=== PATIENT | female | born 1970 | race American Indian/Alaskan Native ===

== ENCOUNTER 2018-05-05 18:19 | Emergency (ER) | payer OTHER ==
[2018-05-05 18:55] VITALS: BP 148/101
[2018-05-05] MEDS ORDERED: TORADOL IM ONE (21:17)
--- NOTE | 2018-05-05 21:49 | Emergency Department Report ---
ED Back Pain/Injury HPI - General Chief Complaint: Back Pain/Injury Stated Complaint: LOWER BACK PAIN Time Seen by Provider: 05/05/18 20:38 Source: patient Limitations: No Limitations - History of Present Illness Initial Comments: This is a 47-year-old female nontoxic, well nourished in appearance, no acute signs of distress presents to the ED with c/o of acute on chronic lower back pain. 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 Patient states has history of sciatica nerve pain which is similar symptoms as today. Patient states that pain radiates through to his right lower extremity. Patient denies any trauma. Denies any bladder or bowel instability. Patient denies any urinary symptoms. Denies any fever, chills, nausea, vomiting, headache, stiff neck, chest pain or shortness of breath. Patient denies any numbness or tingling. Patient stated allergies to PCN. Denies any PMH. MD Complaint: back pain -: days(s) (2) Similar Symptoms Previously: Yes Place: work Radiation: right leg Severity: mild Severity scale (0 -10): 8 Quality: aching Consistency: intermittent Improves With: immobilization, supine, sitting upright Worsens With: movement, walking Context: while lifting, turning/twisting Associated Symptoms: denies other symptoms. denies: confusion, weakness, chest pain, numbness, difficulty walking, cough, difficulty urinating, diaphoresis, incontinence, fever/chills, constipation, headaches, abdominal pain, loss of appetite, malaise, nausea/vomiting, rash, seizure, shortness of breath, syncope - Related Data Previous Rx's Medication Instructions Recorded Last Taken Type Butalb/Acetamin/Caff 50-325-40 1 each PO Q6H PRN #12 tablet 06/15/14 Unknown Rx [Fioricet] Doxycycline [Vibramycin CAP] 100 mg PO BID #12 capsule 06/15/14 Unknown Rx Fluticasone [Flonase] 1 spray NS QDAY #1 bottle 06/15/14 Unknown Rx Famotidine [Pepcid] 20 mg PO BID #10 tablet 10/30/14 Unknown Rx Ondansetron [Zofran Odt] 8 mg PO Q6H #10 tab.rapdis 10/30/14 Unknown Rx Cyclobenzaprine [Flexeril] 10 mg PO QHS PRN #10 tablet 05/05/18 Unknown Rx Ibuprofen [Motrin] 600 mg PO Q8H PRN #30 tablet 05/05/18 Unknown Rx Allergies Allergy/AdvReac Type Severity Reaction Status Date / Time Penicillins Allergy Hives Verified 06/15/14 05:48 ED Review of Systems ROS: Stated complaint: LOWER BACK PAIN Other details as noted in HPI Constitutional: denies: chills, fever Eyes: denies: eye pain, eye discharge, vision change ENT: denies: ear pain, throat pain Respiratory: denies: cough, shortness of breath, wheezing Cardiovascular: denies: chest pain, palpitations Endocrine: no symptoms reported Gastrointestinal: denies: abdominal pain, nausea, vomiting, diarrhea Genitourinary: denies: urgency, dysuria, discharge Musculoskeletal: back pain. denies: joint swelling, arthralgia Skin: denies: rash, lesions Neurological: denies: headache, weakness, paresthesias Psychiatric: denies: anxiety, depression Hematological/Lymphatic: denies: easy bleeding, easy bruising ED Past Medical Hx - Past Medical History Hx Hypertension: Yes Hx CVA: No Hx Heart Attack/AMI: No Hx Congestive Heart Failure: No Hx Diabetes: No Hx Deep Vein Thrombosis: No Hx Pulmonary Embolism: No Hx GERD: No Hx Liver Disease: No Hx Renal Disease: No Hx Sickle Cell Disease: No Hx Arthritis: No Hx Headaches / Migraines: No Hx Seizures: No Hx Kidney Stones: No Hx Psychiatric Treatment: No Hx Asthma: No Hx COPD: No Hx Tuberculosis: No Hx Dementia: No Hx HIV: No - Surgical History Hx Coronary Stent: No Hx Open Heart Surgery: No Hx Pacemaker: No Hx Internal Defibrillator: No Hx Cholecystectomy: No Hx Appendectomy: No Hx Breast Surgery: Yes Additional Surgical History: breast reduction,hysterectomy - Social History Smoking Status: Never Smoker Substance Use Type: None - Medications Home Medications: Home Medications Medication Instructions Recorded Confirmed Last Taken Type Butalb/Acetamin/Caff 50-325-40 1 each PO Q6H PRN #12 tablet 06/15/14 Unknown Rx [Fioricet] Doxycycline [Vibramycin CAP] 100 mg PO BID #12 capsule 06/15/14 Unknown Rx Fluticasone [Flonase] 1 spray NS QDAY #1 bottle 06/15/14 Unknown Rx Famotidine [Pepcid] 20 mg PO BID #10 tablet 01/31/15 Unknown Rx Ondansetron [Zofran Odt] 8 mg PO Q6H #10 tab.rapdis 10/30/14 Unknown Rx Cyclobenzaprine [Flexeril] 10 mg PO QHS PRN #10 tablet 05/05/18 Unknown Rx Ibuprofen [Motrin] 600 mg PO Q8H PRN #30 tablet 05/05/18 Unknown Rx ED Physical Exam - General Limitations: No Limitations General appearance: alert, in no apparent distress - Head Head exam: Present: atraumatic, normocephalic - Eye Eye exam: Present: normal appearance, PERRL, EOMI Pupils: Present: normal accommodation - ENT ENT exam: Present: normal exam, mucous membranes moist - Neck Neck exam: Present: normal inspection, full ROM. Absent: tenderness, meningismus, lymphadenopathy - Respiratory Respiratory exam: Present: normal lung sounds bilaterally. Absent: respiratory distress, wheezes, rales, rhonchi, stridor, chest wall tenderness, accessory muscle use, decreased breath sounds, prolonged expiratory - Cardiovascular Cardiovascular Exam: Present: regular rate, normal rhythm, normal heart sounds. Absent: bradycardia, tachycardia, irregular rhythm, systolic murmur, diastolic murmur, rubs, gallop - GI/Abdominal GI/Abdominal exam: Present: soft, normal bowel sounds. Absent: distended, tenderness, guarding, rebound, rigid, diminished bowel sounds - Rectal Rectal exam: Present: deferred - Extremities Exam Extremities exam: Present: normal inspection, full ROM, normal capillary refill. Absent: tenderness - Back Exam Back exam: Present: normal inspection, full ROM, paraspinal tenderness (lumbar paraspinal). Absent: tenderness, CVA tenderness (R), CVA tenderness (L), muscle spasm, vertebral tenderness, rash noted - Neurological Exam Neurological exam: Present: alert, oriented X3, normal gait - Psychiatric Psychiatric exam: Present: normal affect, normal mood - Skin Skin exam: Present: warm, dry, intact, normal color. Absent: rash ED Course Vital Signs 05/05/18 18:53 Temperature 98.5 F Pulse Rate 70 Respiratory 18 Rate Blood Pressure 148/101 O2 Sat by Pulse 99 Oximetry - Reevaluation(s) Reevaluation #1: 05/05/18 21:43 Patient is speaking in full sentences with no signs of distress noted. ED Medical Decision Making - Medical Decision Making This is a 47-year-old female that presents with low back strain. Patient is stable was examined by me. There is no spinal tenderness. There is no cauda equina syndrome during examination. No bladder or bowel instability. Patient received Toradol 60 mg IM in the ED which preceded his symptoms has resolved and subsided. Patient is discharged with muscle relaxant and Motrin. Patient was instructed not to operate any machinery while taking muscle relaxant as they cause her drowsiness. Patient was referred to Follow-up with a primary care doctor in 3-5 days or if symptoms worsen and continue return to emergency room as soon as possible. At time of discharge, the patient does not seem toxic or ill in appearance. No acute signs of distress noted. Patient agrees to discharge treatment plan of care. No further questions noted by the patient. This chart is dictated with using [employer] Critical care attestation.: If time is entered above; I have spent that time in minutes in the direct care of this critically ill patient, excluding procedure time. ED Disposition Clinical Impression: Low back strain Qualifiers: Encounter type: initial encounter Qualified Code(s): S39.012A - Strain of muscle, fascia and tendon of lower back, initial encounter Disposition: - TO HOME OR SELFCARE Is pt being admited?: No Does the pt Need Aspirin: No Condition: Stable Instructions: Low Back Strain (ED), Cyclobenzaprine (By mouth) Additional Instructions: Follow-up with your primary care doctor in 3-5 days or if symptoms worsen such as bladder or bowel stability, chest pain, short of breath, numbness or tingling sensation in extremities, headache, dizziness, visual changes, nausea vomiting, or abdominal pain, return back to emergency room as was possible. Take ibuprofen and Flexeril as prescribed. Do not operate heavy machinery while taking Flexeril due to sedation Prescriptions: Cyclobenzaprine [Flexeril] 10 mg PO QHS PRN #10 tablet PRN Reason: Muscle Spasm Ibuprofen [Motrin] 600 mg PO Q8H PRN #30 tablet PRN Reason: Pain Referrals: PRIMARY CAREMD [Primary Care Provider] - 3-5 Days SETH SAHNI MD [Staff Physician] - 3-5 Days [facility] [Outside] - 3-5 Days [facility] [Outside] - 3-5 Days Forms: Work/School Release Form(ED)
== END 2018-05-05 22:20 | disposition home or self-care (01) ==
LOC: ED 18:19
DX: S39.012A Strain of muscle, fascia and tendon of lower back, initial encounter (principal); I10 Essential (primary) hypertension; Z88.0 Allergy status to penicillin; Z90.710 Acquired absence of both cervix and uterus; X50.0XXA Overexertion from strenuous movement or load, initial encounter; Y93.89 Activity, other specified; Y92.89 Other specified places as the place of occurrence of the external cause; Y99.8 Other external cause status
CPT/HCPCS: 96372; 99282; J1885

== ENCOUNTER 2019-11-22 17:39 | Emergency (ER) | payer OTHER ==
[2019-11-22 18:22] VITALS: BP 154/99
--- NOTE | 2019-11-22 18:22 | Event Note ---
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
--- NOTE | 2019-11-22 18:25 | Emergency Department Report ---
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 may use ice pack, heating pad, rest, epsom salt bath. if symptoms do not improve in the next couple of days follow up with a primary care doctor. return to the emergency room immediately for any new or worsening symptoms including but not limited to fever, chills, nausea/vomiting/diarrhea, blood or pus in the stool, burning on urination, urinary frequency/urgency, severe abdominal pain, or if unable to johnson ve a bowel movement, etc. Could be related to muscle strain, bursitis, arthritis Patient has had no acute traumatic injury Patient has no clinical signs or symptoms of DVT Medical screening examination performed and there is no threat to life or limb at this time Patient referred to an orthopedic, also discussed to see her PCP Discussed strict return precautions with the patient - Exam Vital Signs: Vital Signs 11/22/19 18:17 Temperature 98.1 F Pulse Rate 79 Respiratory 18 Rate Blood Pressure 154/99 O2 Sat by Pulse 100 Oximetry MSE screening note: Focused history and physical exam performed. ED Disposition for MSE Clinical Impression: Right hip pain Disposition: Z-[id number] MED SCREENING EXAM-LEFT Condition: Stable Instructions: Muscle Strain (ED) Additional Instructions: may take tylenol or ibuprofen as needed for pain. may use ice pack, heating pad, rest, epsom salt bath. if symptoms do not improve in the next couple of days follow up with a primary care doctor. return to the emergency room immediately for any new or worsening symptoms including but not limited to fever, chills, nausea/vomiting/diarrhea, blood or pus in the stool, burning on urination, urinary frequency/urgency, severe abdominal pain, or if unable to have a bowel movement, etc. Referrals: [facility] [Provider Group] - 3-5 Days HARSH SEN MD [Staff Physician] - 3-5 Days Forms: Work/School Release Form(ED) Time of Disposition: 18:23 Print Language: KOREAN
== END 2019-11-22 19:15 | disposition left against medical advice (07) ==
LOC: ED 17:39
DX: M25.551 Pain in right hip (principal)
CPT/HCPCS: 99282

== ENCOUNTER 2021-01-21 16:03 | Emergency (ER) | payer SELFPAY | END 2021-01-21 19:00 | disposition left against medical advice (07) | LOC: ED 16:03 | DX: R51.9 Headache, unspecified (principal); Z53.21 Procedure and treatment not carried out due to patient leaving prior to being seen by health care provider ==

== ENCOUNTER 2021-09-24 12:09 | Emergency (ER) | payer SELFPAY ==
[2021-09-24 15:53] VITALS: BP 172/97
--- NOTE | 2021-09-24 16:21 | Emergency Department Report ---
- General Chief Complaint: Upper Respiratory Infection Stated Complaint: FACIAL PAIN/THROAT PAIN Time Seen by Provider: 09/24/21 15:59 Source: patient Mode of arrival: Ambulatory Limitations: No Limitations - History of Present Illness Initial Comments: Patient is a 50-year-old female presents emergency room with complaints of nasal congestion that began 2 days ago. she has associated sinus pressure, dry cough, sore throat. She denies any fever, vomiting, diarrhea, shortness of breath, chest pain. She reports that her niece tested positive for COVID-19. Patient states that she has been fully vaccinated for COVID-19. Past medical history of hypertension. Allergy to penicillin. - Related Data Previous Rx's Medication Instructions Recorded Last Taken Type Butalb/Acetamin/Caff 50-325-40 1 each PO Q6H PRN #12 tablet 06/15/14 Unknown Rx [Fioricet] DOXYCYCLINE Hyclate [Vibramycin 100 mg PO BID #12 capsule 06/15/14 Unknown Rx CAP] Fluticasone [Flonase] 1 spray NS QDAY #1 bottle 06/15/14 Unknown Rx Famotidine [Pepcid] 20 mg PO BID #10 tablet 10/30/14 Unknown Rx Ondansetron [Zofran Odt] 8 mg PO Q6H #10 tab.rapdis 10/30/14 Unknown Rx Cyclobenzaprine [Flexeril] 10 mg PO QHS PRN #10 tablet 05/05/18 Unknown Rx Ibuprofen [Motrin] 600 mg PO Q8H PRN #30 tablet 05/05/18 Unknown Rx Benzonatate [Tessalon Perles] 100 mg PO Q8HR PRN #12 capsule 09/24/21 Unknown Rx Fluticasone [Flonase] 1 spray NS QDAY #1 bottle 09/24/21 Unknown Rx Loratadine 10 mg PO DAILY #14 tablet 09/24/21 Unknown Rx guaiFENesin ER [Mucinex ER] 600 mg PO Q12H #14 tablet.er 09/24/21 Unknown Rx Allergies Allergy/AdvReac Type Severity Reaction Status Date / Time Penicillins Allergy Hives Verified 06/15/14 05:48 ED Review of Systems ROS: Stated complaint: FACIAL PAIN/THROAT PAIN Other details as noted in HPI Comment: All other systems reviewed and negative ED Past Medical Hx - Past Medical History Previous Medical History?: Yes Hx Hypertension: Yes Hx CVA: No Hx Heart Attack/AMI: No Hx Congestive Heart Failure: No Hx Diabetes: No Hx Deep Vein Thrombosis: No Hx Pulmonary Embolism: No Hx GERD: No Hx Liver Disease: No Hx Renal Disease: No Hx Sickle Cell Disease: No Hx Arthritis: No Hx Headaches / Migraines: No Hx Seizures: No Hx Kidney Stones: No Hx Psychiatric Treatment: No Hx Asthma: No Hx COPD: No Hx Tuberculosis: No Hx Dementia: No Hx HIV: No - Surgical History Past Surgical History?: Yes Hx Coronary Stent: No Hx Open Heart Surgery: No Hx Pacemaker: No Hx Internal Defibrillator: No Hx Cholecystectomy: No Hx Appendectomy: No Hx Breast Surgery: Yes Additional Surgical History: breast reduction,hysterectomy,HERNIA REPAIR, CYST REMOVAL L OVARY - Social History Smoking Status: Never Smoker Substance Use Type: None - Medications Home Medications: Home Medications Medication Instructions Recorded Confirmed Last Taken Type Butalb/Acetamin/Caff 50-325-40 1 each PO Q6H PRN #12 tablet 06/15/14 Unknown Rx [Fioricet] DOXYCYCLINE Hyclate [Vibramycin 100 mg PO BID #12 capsule 06/15/14 Unknown Rx CAP] Fluticasone [Flonase] 1 spray NS QDAY #1 bottle 06/15/14 Unknown Rx Famotidine [Pepcid] 20 mg PO BID #10 tablet 10/30/14 Unknown Rx Ondansetron [Zofran Odt] 8 mg PO Q6H #10 tab.rapdis 10/30/14 Unknown Rx Cyclobenzaprine [Flexeril] 10 mg PO QHS PRN #10 tablet 05/05/18 Unknown Rx Ibuprofen [Motrin] 600 mg PO Q8H PRN #30 tablet 05/05/18 Unknown Rx Benzonatate [Tessalon Perles] 100 mg PO Q8HR PRN #12 capsule 09/24/21 Unknown Rx Fluticasone [Flonase] 1 spray NS QDAY #1 bottle 09/24/21 Unknown Rx Loratadine 10 mg PO DAILY #14 tablet 09/24/21 Unknown Rx guaiFENesin ER [Mucinex ER] 600 mg PO Q12H #14 tablet.er 09/24/21 Unknown Rx ED Physical Exam - General Limitations: No Limitations General appearance: alert, in no apparent distress - Head Head exam: Present: atraumatic, normocephalic - Eye Eye exam: Present: normal appearance - ENT ENT exam: Present: normal orophraynx, mucous membranes moist, TM's normal bilaterally, normal external ear exam, other (edema of the nasal turbinates with clear rhinorrhea) - Respiratory Respiratory exam: Present: normal lung sounds bilaterally. Absent: respiratory distress, wheezes, rales, rhonchi, stridor, chest wall tenderness, accessory muscle use, decreased breath sounds, prolonged expiratory - Cardiovascular Cardiovascular Exam: Present: regular rate, normal rhythm, normal heart sounds. Absent: systolic murmur, diastolic murmur, rubs, gallop - Neurological Exam Neurological exam: Present: alert, oriented X3 - Psychiatric Psychiatric exam: Present: normal affect, normal mood - Skin Skin exam: Present: warm, dry, intact ED Course Vital Signs 09/24/21 15:49 Temperature 98.2 F Pulse Rate 89 Respiratory 16 Rate Blood Pressure 172/97 [Left] O2 Sat by Pulse 99 Oximetry ED Medical Decision Making - Medical Decision Making Patient is a 50-year-old female presents emergency room with complaints of nasal congestion that began 2 days ago. she has associated sinus pressure, dry cough, sore throat. She denies any fever, vomiting, diarrhea, shortness of breath, chest pain. She reports that her niece tested positive for COVID-19. Patient states that she has been fully vaccinated for COVID-19. Past medical history of hypertension. Allergy to penicillin. Vitals are stable. On exam:edema of the nasal turbinates with clear rhinorrhea, breath sounds are clear bilaterally, normal oropharynx, normal TMs and canals. Symptoms could be related to URI versus early sinusitis. Patient given prescription for medications. Advised patient please use medication as prescribed. Increase fluid intake. May use a vaporizer. Follow-up with your primary care doctor for reexamination. Return to emergency room for any new or worsening symptoms or if symptoms are lasting longer than 10 days. Recommend outpatient COVID-19 testing if positive will need to self quarantine for 10 days from onset of symptoms. Critical care attestation.: If time is entered above; I have spent that time in minutes in the direct care of this critically ill patient, excluding procedure time. ED Disposition Clinical Impression: URI (upper respiratory infection) Qualifiers: URI type: unspecified URI Qualified Code(s): J06.9 - Acute upper respiratory infection, unspecified Disposition: 01 HOME / SELF CARE / HOMELESS Is pt being admited?: No Does the pt Need Aspirin: No Condition: Stable Instructions: Viral Respiratory Infection Additional Instructions: please use medication as prescribed. Increase fluid intake. May use a vaporizer. Follow-up with your primary care doctor for reexamination. Return to emergency room for any new or worsening symptoms or if symptoms are lasting longer than 10 days. Recommend outpatient COVID-19 testing if positive will need to self quarantine for 10 days from onset of symptoms. Prescriptions: Fluticasone [Flonase] 1 spray NS QDAY #1 bottle Loratadine 10 mg PO DAILY #14 tablet guaiFENesin ER [Mucinex ER] 600 mg PO Q12H #14 tablet.er Benzonatate [Tessalon Perles] 100 mg PO Q8HR PRN #12 capsule PRN Reason: cough Referrals: MINAL MONTANEZ MD [Staff Physician] - 3-5 Days [facility] [Provider Group] - 3-5 Days Time of Disposition: 16:21 Print Language: MALAY
== END 2021-09-24 19:04 | disposition home or self-care (01) ==
LOC: ED 12:09
DX: J06.9 Acute upper respiratory infection, unspecified (principal); I10 Essential (primary) hypertension; Z90.710 Acquired absence of both cervix and uterus; Z98.890 Other specified postprocedural states; Z88.0 Allergy status to penicillin
CPT/HCPCS: 99282

== ENCOUNTER 2021-09-24 12:16 | Emergency (ER) | payer SELFPAY | END 2021-09-25 03:45 | disposition home or self-care (01) | LOC: ED 12:16 | DX: R07.0 Pain in throat (principal); Z53.21 Procedure and treatment not carried out due to patient leaving prior to being seen by health care provider ==